=== PATIENT | male | born 1940 | race Caucasian/White ===

== ENCOUNTER 2016-11-14 11:55 | Emergency (ER) | payer OTHER ==
[~2016-11-14] VITALS: Ht 180.3 cm; Wt 108.9 kg
[2016-11-14 12:19] LABS: BASOPHILS % (AUTO) 0.4 % (0.0-2.0); EOSINOPHILS # (AUTO) 0.2 K/uL (0.0-0.7); EOSINOPHILS % (AUTO) 2.4 % (0.0-7.0); HEMATOCRIT 38.3 % (40-50); LYMPHOCYTES # (AUTO) 1.9 K/UL (0.8-4.8); LYMPHOCYTES % (AUTO) 29.2 % (20.5-51.5); MEAN CORPUSCULAR HEMOGLOBIN 31.9 UUG (27.0-31.0); MEAN CORPUSCULAR HGB CONC 34 g/dL (32.0-37.0); MEAN CORPUSCULAR VOLUME 93.7 FL (82.0-92.0); MONOCYTES # (AUTO) 0.4 K/UL (0.1-1.30); MONOCYTES % (AUTO) 6.7 % (0.0-11.0); NEUTROPHILS # (AUTO) 3.9 K/UL (1.8-8.9); NEUTROPHILS % (AUTO) 61.3 % (38.5-71.5); PLATELET COUNT (AUTO) 153 K/UL (150-450); RED BLOOD CELL COUNT(AUTO) 4.09 MIL/UL (4.7-6.1); WHITE BLOOD COUNT (AUTO) 6.4 K/UL (4.0-11.2)
[2016-11-14] MEDS ORDERED: L GA1CAP PO (12:26)
[2016-11-14] MEDS ORDERED: ASPI81TA31 PO (12:26)
[2016-11-14] MEDS ORDERED: DRON400T PO (12:26)
[2016-11-14] MEDS ORDERED: GLUC1CAP14 PO (12:26)
[2016-11-14] MEDS ORDERED: OLME40TA12 PO (12:26)
[2016-11-14] MEDS ORDERED: SIMV10TA2 PO (12:26)
[2016-11-14] MEDS ORDERED: FEBU40TA PO (12:26)
[2016-11-14] MEDS ORDERED: LEVO50TA PO (12:26)
[2016-11-14] MEDS ORDERED: DOXA8TAB2 PO (12:26)
[2016-11-14] MEDS ORDERED: METO25TA3 PO (12:26)
[2016-11-14] MEDS ORDERED: GENTLE IRON PO (12:26)
[2016-11-14] MEDS ORDERED: FLUT9.9S NS (12:26)
[2016-11-14] MEDS ORDERED: AMLO5TAB4 PO (12:26)
[2016-11-14 12:45] LABS: CARBON DIOXIDE 28 mmol/L (21-32); CHLORIDE 108 mmol/L (98-107); CREATININE 1.4 mg/dL (0.6-1.3); GLUCOSE 138 mg/dL (74-106); POTASSIUM 3.8 mmol/L (3.5-5.1); UREA NITROGEN, BLOOD 21 mg/dL (7-18)
[2016-11-14 12:50] LABS: ALANINE AMINOTRANSFERASE 33 U/L (16-63); ALKALINE PHOSPHATASE 72 U/L (50-136); ASPARTATE AMINOTRANSFERASE 19 U/L (15-37); BILIRUBIN,DIRECT 0.1 mg/dL (0.0-0.2); BILIRUBIN,TOTAL 0.4 mg/dL (0.2-1.0); TOTAL PROTEIN, SERUM 6.9 g/dL (6.4-8.2)
--- NOTE | 2016-11-14 13:14 | NUR ---
Patient discharged to home in stable conditon. Written and verbal after care instructions given. Patient verbalizes understanding of instructions. IV removed. Catheter intact and site benign. Pressure and 4x4 gauze applied to site. No bleeding noted.
== END 2016-11-14 13:15 | disposition home or self-care (01) ==
LOC: ER 11:56
DX: R55 Syncope and collapse (principal); I48.91 Unspecified atrial fibrillation; Z79.82 Long term (current) use of aspirin; Z95.0 Presence of cardiac pacemaker
CPT/HCPCS: 36415; 70030-TC; 71010; 85025; 85730; 93005; A4663; J7030